=== PATIENT | female | born 1965 | race Caucasian/White ===

== ENCOUNTER → 2022-09-23 | Outpatient (REF) | payer BC ==
[2022-09-23 18:57] LABS: PERCENT SATURATION 12.8 % (13.2-45.0)
[2022-09-23 19:03] LABS: FERRITIN 141.9 NG/ML (7.3-270.7)
== END ==
LOC: M LAB REF 17:41
PROVIDERS: ATTEND Internal Medicine
DX: E61.1 Iron deficiency (principal)

== ENCOUNTER → 2022-09-30 | Outpatient (CLI) | payer BC | LOC: M WHC 16:34 | PROVIDERS: ATTEND Internal Medicine | DX: Z12.31 Encounter for screening mammogram for malignant neoplasm of breast (principal) ==

== ENCOUNTER → 2023-07-06 | Outpatient (CLI) | payer BC | LOC: M WHC 13:32 | PROVIDERS: ATTEND Internal Medicine | DX: Z12.31 Encounter for screening mammogram for malignant neoplasm of breast (principal) ==

== ENCOUNTER → 2023-10-07 | Outpatient (REF) | payer BC ==
[2023-10-07 17:42] LABS: PERCENT SATURATION 23.3 % (13.2-45.0)
[2023-10-07 17:45] LABS: FERRITIN 92.4 NG/ML (7.3-270.7)
== END ==
LOC: M LAB REF 16:28
PROVIDERS: ATTEND Internal Medicine
DX: E61.1 Iron deficiency (principal)

== ENCOUNTER → 2023-11-12 | Outpatient (CLI) | payer BC | LOC: M RAD 11:57 | PROVIDERS: ATTEND Internal Medicine | DX: R22.2 Localized swelling, mass and lump, trunk (principal) ==

== ENCOUNTER → 2023-12-01 | Outpatient (REF) | payer BC | LOC: M LAB REF 15:46 | PROVIDERS: ATTEND Surgery | DX: D17.39 Benign lipomatous neoplasm of skin and subcutaneous tissue of other sites (principal) ==

== ENCOUNTER → 2024-12-14 | Outpatient (CLI) | payer BC | LOC: M SOG 06:50 | PROVIDERS: ATTEND Orthopaedic Surgery | DX: M19.012 Primary osteoarthritis, left shoulder (principal) ==